=== PATIENT | female | born 1935 | race Caucasian/White ===

== ENCOUNTER 2017-06-04 06:16 | Inpatient (IN) ==
--- NOTE | 2017-06-04 06:42 | Emergency Department Note ---
START Narrative - START START: 82 year old female who has been experiencing increased shortness of breath and chest pain that radiates into her back between her shoulder blades. She states that she has a history of aortic stenosis and pulmonary hypertesion. Concern for aortic pathology. Will start workup and sign patinet out to day team (Ita) .
[2017-06-04 06:59] LABS: Basophils % 0.1 %; Eosinophils # 0.4 K/mcL (0.0-0.6); Eosinophils % 2.5 %; Immature Granulocytes % 1.6 % (0-4); Lymphocytes # 2.1 K/mcL (0.6-4.6); Lymphocytes % 15.1 %; Mean Corpuscular HGB Conc 26.8 g/dL (31.6-35.5); Mean Corpuscular Volume 89.2 fL (83.0-100.0); Monocytes # 1.2 K/mcL (0.0-1.3); Monocytes % 8.3 %; Nucleated Red Blood Cells 0.4 /100 WBC (0); Platelet Count 224 K/mcL (140-400); Red Blood Count 1.67 M/mcL (3.82-4.97); Red Cell Distribution Width 16.5 % (11.5-14.5); Segmented Neutrophils % 72.4 %
[2017-06-04 07:01] LABS: INR 1.1; Prothrombin Time 12.1 Seconds (9.4-12.1)
[2017-06-04 07:04] LABS: Activated Partial Thrombo Time 23.9 Seconds (26.0-36.0)
--- NOTE | 2017-06-04 07:07 | Emergency Department Note ---
Disposition Clinical Impression: Anemia Qualifiers: Anemia type: unspecified type Qualified Code(s): D64.9 - Anemia, unspecified Disposition: Admitted As Inpatient Condition: Good Time of Disposition: 10:18 General Adult HPI - General Chief complaint: ED Shortness of Breath/Dyspnea Stated complaint: ADRIANNA Time Seen by Provider: 06/04/17 06:22 Source: patient, EMS Limitations: no limitations Nursing Notes Reviewed: Yes Vital Signs Reviewed: Yes - History of Present Illness HPI Narrative: Several day history of generalized weakness. Also complaining of pain in her back between her shoulder blades. Does have associated dyspnea. Patient denies any recent GI bleeds upper or lower. She states she has never had a GI bleed before. States she had lab work done 1 week ago and was told it was normal. Pain Scale: 0 - Related Data Home Medications Medication Instructions Recorded Confirmed ALPRAZolam [Xanax 0.5 MG Tablet] 0.5 mg PO QID PRN 06/04/17 06/04/17 Amitriptyline HCl 100 mg PO HS 06/04/17 06/04/17 Calcium Carb, Citrate/Vit D3 1 tab PO DAILY 06/04/17 06/04/17 [Calcium + D3 ER Tablet] Enalapril Maleate [Vasotec] 10 mg PO DAILY 06/04/17 06/04/17 Furosemide [Lasix] 20 mg PO BID 06/04/17 06/04/17 HYDROcodone/Acet 10/325 mg [[place] 2 tab PO TID PRN 06/04/17 06/04/17 10-325 mg] Lecithin 518 mg PO BID 06/04/17 06/04/17 Metformin HCl [Glucophage] 1,000 mg PO BID 06/04/17 06/04/17 [place]-3/Dha/Epa/Fish Oil [Fish Oil 1 cap PO BID 06/04/17 06/04/17 1,000 mg Softgel] Ranitidine HCl [Acid Courtesy [place]] 150 mg PO BID 06/04/17 06/04/17 Sildenafil Citrate [Revatio] 20 mg PO TID 06/04/17 06/04/17 Tramadol HCl [Ultram] 50 mg PO Q8H PRN 06/04/17 06/04/17 Ubiquinol 100 mg PO DAILY 06/04/17 06/04/17 Vitamin B Complex Vit C No.4 150 mg PO BID 06/04/17 06/04/17 [Super B Complex] hydroCHLOROthiazide 25 mg PO DAILY 06/04/17 06/04/17 [Hydrochlorothiazide] Levothyroxine Sodium [Synthroid] 137 mcg PO DAILY@0630 06/05/17 06/05/17 Allergies Allergy/AdvReac Type Severity Reaction Status Date / Time iodine Allergy Anaphylaxis Verified 06/28/15 17:14 aspirin AdvReac Mild See Verified 06/28/15 17:14 Comments codeine AdvReac Palpitation Verified 06/28/15 17:14 s Cortisone AdvReac Hives Verified 06/28/15 17:14 Hydromorphone [From Dilaudid] AdvReac Itching Verified 06/28/15 17:14 prednisone AdvReac Palpitation Verified 06/28/15 17:14 s Sulfa (Sulfonamide AdvReac Nausea Verified 06/28/15 17:14 Antibiotics) All systems ED: reviewed and negative except as stated. Constitutional: Denies: fever, chills Cardiovascular: Denies: chest pain, palpitations, syncope Respiratory: Reports: dyspnea. Denies: cough Gastrointestinal: Denies: nausea, vomiting, diarrhea, hematemesis, melena, hematochezia Genitourinary: Denies: urgency Musculoskeletal: Reports: back pain (pain between her shoulder blades) Integumentary: Denies: rash Neurological: Denies: headache, weakness Endocrine: Reports: fatigue Past Medical History - Past Medical History Attestation: Yes The following information was validated with the patient. Source: patient Medical history: Reports: CHF, coronary artery disease, DVT, other Surgical history: Reports: angioplasty/stent, appendectomy, , cancer surgery, cholecystectomy, herniorrhaphy, hysterectomy, orthopedic, other Psychiatric history: Reports: no psych history - Social History Smoking Status: Never smoker Smokeless Tobacco Status: No Alcohol use: Reports: none Drug use: Reports: none Physical Exam - General Limitations: no limitations General appearance: alert, in no apparent distress - Head Head exam: atraumatic, normocephalic, normal inspection - Eye Eye exam: Present: normal appearance, PERRL, EOMI. Absent: scleral icterus - ENT ENT exam: normal exam, normal oropharynx, mucous membranes moist - Neck Neck exam: Present: normal inspection, full ROM, trachea midline. Absent: tenderness, lymphadenopathy - Chest Chest inspection: Present: normal inspection, symmetric chest wall rise - Respiratory Respiratory exam: Present: normal lung sounds bilaterally. Absent: respiratory distress - Cardiovascular Cardiovascular exam: Present: regular rate, normal rhythm, normal heart sounds - Abdominal Exam Abdominal exam: Present: soft, Non-Tender, normal bowel sounds. Absent: tenderness, distention, guarding, rebound, rigidity, organomegaly - Extremities Exam Extremities exam: Present: normal inspection, full ROM, normal capillary refill. Absent: tenderness, pedal edema - Back Exam Back exam: Present: normal inspection, full ROM. Absent: tenderness - Neurological Exam Neurological exam: Present: alert, oriented X3 - Psychiatric Psychiatric exam: Present: normal affect, normal mood, other (Appears tired) - Skin Skin exam: Present: warm, dry, intact, pallor Course Course Narrative: Signed out by slot shift manager. Female patient presenting to the emergency department complaining of generalized weakness. States that she started getting a pain in between her shoulder blades over the past couple days as well. Patient has pallor on exam in bed. She denies any history of GI bleeding. She states she does take an aspirin every day. She denies any recent GI bleedings or any history of GI bleeds. She does have a family history of colon cancer. She states she has had several colonoscopies previously with the last being several years ago. However she states she will not have another one of these. Patient is alert and oriented 3 at this time. She denies any chest pain. She does report some mild dyspnea. She states her main complaint is just that she is just weak. She does have some conjunctival pallor. Her abdomen is soft and nontender on exam. Bedside Hemoccult was negative. We have sent one office well. She denies any history of melena hematochezia or upper GI bleeding with hematemesis. We have typed and screened her and her hemoglobin is around 4. She states she had labs done a week ago and they were normal. I do not see the records of the lab draw last week. We attempted screened the patient and ordered 4 units of blood to transfuse now into to hold. Patient is adamant that she does not want any type of surgeries to correct this. She also states that she will not have another colonoscopy. After speaking with her she states she does have a DNR order and does not wish to be intubated at any time. Patient is alert and oriented and appears to be in her sound mind at this time. We will honor patient's wishes. We will admit patient to the hospital for her anemia. She is agreeable to this. She ended up getting 2 L of fluid while down here to maintain a blood pressure around 90 systolic. Her heart sounds are normal lung sounds are clear. Chest x-ray did show a nodule in her lung. We will CT patient's chest as well. She is denying any pain medication needed at this time. She states she takes chronic Percocet but does not need one currently. - Reevaluation(s) Reevaluation #1: Blood transfusion has begun. Bedside Hemoccult was negative as was the one we sent down. We will admit patient to the hospital for her anemia. She is agreeable to this. The resident has been made aware that the CT is pending. - Consultations Consultation #1: Dr. Carrillo and resident accepted patient in stable condition. Vital Signs Temperature 98.9 F 06/04/17 06:18 Pulse Rate 87 06/04/17 06:18 Respiratory Rate 18 06/04/17 06:18 Blood Pressure 74/49 06/04/17 06:18 O2 Sat by Pulse Oximetry 100 06/04/17 06:18 Temperature 98.4 F 06/05/17 16:00 Pulse Rate 73 06/05/17 16:00 Respiratory Rate 15 06/05/17 16:00 Blood Pressure 127/48 06/05/17 16:00 O2 Sat by Pulse Oximetry 98 06/05/17 16:00 Oxygen Delivery Oxygen Delivery Nasal Cannula Medical Decision Making - Medical Records Medical records reviewed: Yes I reviewed the patient's medical records. - Lab Data Lab results reviewed: Yes I reviewed the patient's lab results. Result diagrams: 06/05/17 15:04 06/05/17 04:31 Lab Results 06/04/17 06/04/17 06/04/17 Range/Units 06:45 06:45 06:45 WBC (4.3-11.1) K/mcL RBC (3.82-4.97) M/mcL Hgb (11.5-15.4) g/dL Hct (35.3-44.9) % MCV (83.0-100.0) fL MCH (28.0-33.3) pg MCHC (31.6-35.5) g/dL RDW (11.5-14.5) % Plt Count (140-400) K/mcL MPV (9.4-12.4) fL Immature Gran % (0-4) % Seg Neutrophils % % Lymphocytes % % Monocytes % % Eosinophils % % Basophils % % Neutrophils # (1.6-8.9) K/mcL Lymphocytes # (0.6-4.6) K/mcL Monocytes # (0.0-1.3) K/mcL Eosinophils # (0.0-0.6) K/mcL Basophils # (0.0-0.2) K/mcL Nucleated RBCs/100 WBC (0) /100 WBC Platelet Estimate (Normal) Polychromasia (Not Present) Hypochromasia (Not Present) Anisocytosis (Not Present) Microcytosis (Not Present) PT 12.1 (9.4-12.1) Seconds INR 1.1 APTT 23.9 L (26.0-36.0) Seconds Sodium 139 (136-145) mEq/L Potassium 5.2 H (3.5-4.5) mEq/L Chloride 103 (98-109) mEq/L Carbon Dioxide 16 L (19-29) mEq/L BUN 72 H (7-20) mg/dL Creatinine 1.41 H (0.57-1.11) mg/dL Est GFR ( Amer) 43 L (> 60) Est GFR (Non-Af Amer) 36 L (> 60) BUN/Creatinine Ratio 51 H (6-26) Glucose 333 H (70-99) mg/dL Calculated Osmolality 322 H (280-300) Calcium 8.0 L (8.6-10.8) mg/dL Total Bilirubin < 0.3 (0.2-1.2) mg/dL Direct Bilirubin < 0.1 (0.0-0.5) mg/dL Indirect Bilirubin 0.2 (0.0-1.2) mg/dL AST 13 (5-34) Units/L ALT 9 (0-55) Units/L Alkaline Phosphatase 56 (38-126) Units/L Troponin I (0-0.03) ng/mL B-Natriuretic Peptide 131 H (0-100) pg/mL Serum Total Protein 5.4 L (6.0-8.3) g/dL Albumin 2.3 L (3.5-5.0) g/dL Globulin 3.1 (2.4-3.5) g/dL Albumin/Globulin Ratio 0.7 L (1.1-2.2) Lipase 51 (8-78) Units/L Stool Occult Blood (Negative) Blood Type Antibody Screen Crossmatch 06/04/17 06/04/17 06/04/17 Range/Units 06:45 06:45 07:34 WBC 13.8 H (4.3-11.1) K/mcL RBC 1.67 L (3.82-4.97) M/mcL Hgb 4.0 L* (11.5-15.4) g/dL Hct 14.9 L* (35.3-44.9) % MCV 89.2 (83.0-100.0) fL MCH 24.0 L (28.0-33.3) pg MCHC 26.8 L (31.6-35.5) g/dL RDW 16.5 H (11.5-14.5) % Plt Count 224 (140-400) K/mcL MPV 11.0 (9.4-12.4) fL Immature Gran % 1.6 (0-4) % Seg Neutrophils % 72.4 % Lymphocytes % 15.1 % Monocytes % 8.3 % Eosinophils % 2.5 % Basophils % 0.1 % Neutrophils # 10.0 H (1.6-8.9) K/mcL Lymphocytes # 2.1 (0.6-4.6) K/mcL Monocytes # 1.2 (0.0-1.3) K/mcL Eosinophils # 0.4 (0.0-0.6) K/mcL Basophils # 0.0 (0.0-0.2) K/mcL Nucleated RBCs/100 WBC 0.4 H (0) /100 WBC Platelet Estimate Normal (Normal) Polychromasia 1+ A (Not Present) Hypochromasia Present A (Not Present) Anisocytosis 1+ A (Not Present) Microcytosis Present A (Not Present) PT (9.4-12.1) Seconds INR APTT (26.0-36.0) Seconds Sodium (136-145) mEq/L Potassium (3.5-4.5) mEq/L Chloride (98-109) mEq/L Carbon Dioxide (19-29) mEq/L BUN (7-20) mg/dL Creatinine (0.57-1.11) mg/dL Est GFR ( Amer) (> 60) Est GFR (Non-Af Amer) (> 60) BUN/Creatinine Ratio (6-26) Glucose (70-99) mg/dL Calculated Osmolality (280-300) Calcium (8.6-10.8) mg/dL Total Bilirubin (0.2-1.2) mg/dL Direct Bilirubin (0.0-0.5) mg/dL Indirect Bilirubin (0.0-1.2) mg/dL AST (5-34) Units/L ALT (0-55) Units/L Alkaline Phosphatase (38-126) Units/L Troponin I 0.01 (0-0.03) ng/mL B-Natriuretic Peptide (0-100) pg/mL Serum Total Protein (6.0-8.3) g/dL Albumin (3.5-5.0) g/dL Globulin (2.4-3.5) g/dL Albumin/Globulin Ratio (1.1-2.2) Lipase (8-78) Units/L Stool Occult Blood (Negative) Blood Type O POSITIVE Antibody Screen NEGATIVE Crossmatch See Detail 06/04/17 Range/Units 07:34 WBC (4.3-11.1) K/mcL RBC (3.82-4.97) M/mcL Hgb (11.5-15.4) g/dL Hct (35.3-44.9) % MCV (83.0-100.0) fL MCH (28.0-33.3) pg MCHC (31.6-35.5) g/dL RDW (11.5-14.5) % Plt Count (140-400) K/mcL MPV (9.4-12.4) fL Immature Gran % (0-4) % Seg Neutrophils % % Lymphocytes % % Monocytes % % Eosinophils % % Basophils % % Neutrophils # (1.6-8.9) K/mcL Lymphocytes # (0.6-4.6) K/mcL Monocytes # (0.0-1.3) K/mcL Eosinophils # (0.0-0.6) K/mcL Basophils # (0.0-0.2) K/mcL Nucleated RBCs/100 WBC (0) /100 WBC Platelet Estimate (Normal) Polychromasia (Not Present) Hypochromasia (Not Present) Anisocytosis (Not Present) Microcytosis (Not Present) PT (9.4-12.1) Seconds INR APTT (26.0-36.0) Seconds Sodium (136-145) mEq/L Potassium (3.5-4.5) mEq/L Chloride (98-109) mEq/L Carbon Dioxide (19-29) mEq/L BUN (7-20) mg/dL Creatinine (0.57-1.11) mg/dL Est GFR ( Amer) (> 60) Est GFR (Non-Af Amer) (> 60) BUN/Creatinine Ratio (6-26) Glucose (70-99) mg/dL Calculated Osmolality (280-300) Calcium (8.6-10.8) mg/dL Total Bilirubin (0.2-1.2) mg/dL Direct Bilirubin (0.0-0.5) mg/dL Indirect Bilirubin (0.0-1.2) mg/dL AST (5-34) Units/L ALT (0-55) Units/L Alkaline Phosphatase (38-126) Units/L Troponin I (0-0.03) ng/mL B-Natriuretic Peptide (0-100) pg/mL Serum Total Protein (6.0-8.3) g/dL Albumin (3.5-5.0) g/dL Globulin (2.4-3.5) g/dL Albumin/Globulin Ratio (1.1-2.2) Lipase (8-78) Units/L Stool Occult Blood Negative (Negative) Blood Type Antibody Screen Crossmatch - Radiology Data Radiology results reviewed: Yes I reviewed the patient's radiology results. Chest X-Ray 06/04/17 06:26 IMPRESSION: Left upper lobe nodule. Chest CT is recommended for further evaluation. D/ / Jack Lucio MD / Jack Lucio MD Interpreting Provider: Jack Lucio MD - EKG Data EKG #1 EKG attestation: Yes I reviewed and interpreted this EKG. EKG results narrative: Normal sinus rhythm at a rate 84. MT interval is 155. QRS duration is 79. QT is 352. QTC is 393. No signs of acute ischemia. There is some ST inversions in lead V1 as well as V6. These were not present on the previous EKG dated . Attestation Statement - Attestation Attestation: I, See Jean Baptiste, examined this patient and my medical decision-making was reviewed with the INTERNET AND [employer] BUSINESS PROJECT MANAGER/PA/Advanced Practice Nurse/Resident Physician. I agree with the documented findings, disposition and treatment plan as described except to the extent set forth below. 82-year-old female presents to the emergency department with significant shortness of breath and weakness. Patient is pale on exam and is hypotensive in the emergency department. Rectal exam did not show evidence of occult blood however there was not much stool in the rectal vault. Patient does have significantly elevated BUN/creatinine and she likely has gastrointestinal bleeding from an upper GI source. BP improved after IV fluids and starting blood. Patient denied chest pain, shortness of breath, nausea, vomiting. Patient comfortable with the plan for admission to hospital. She states she is DNR, DNI
[2017-06-04 07:09] LABS: Alanine Aminotransferase 9 Units/L (0-55); Albumin 2.3 g/dL (3.5-5.0); Albumin/Globulin Ratio 0.7 (1.1-2.2); Alkaline Phosphatase 56 Units/L (38-126); Aspartate Amino Transferase 13 Units/L (5-34); BUN/Creatinine Ratio 51 (6-26); Bilirubin,Indirect 0.2 mg/dL (0.0-1.2); Blood Urea Nitrogen 72 mg/dL (7-20); Carbon Dioxide 16 mEq/L (19-29); Chloride 103 mEq/L (98-109); Globulin 3.1 g/dL (2.4-3.5); Glucose 333 mg/dL (70-99); Lipase 51 Units/L (8-78); Osmolality,Calculated 322 (280-300); Potassium 5.2 mEq/L (3.5-4.5); Sodium 139 mEq/L (136-145); Total Protein 5.4 g/dL (6.0-8.3); eGFR For African Americans 43 (> 60); eGFR For Non-African Americans 36 (> 60)
[2017-06-04 07:10] LABS: Bilirubin,Direct < 0.1 mg/dL (0.0-0.5); Bilirubin,Total < 0.3 mg/dL (0.2-1.2)
[2017-06-04 07:13] LABS: Hematocrit 14.9 % (35.3-44.9)
[2017-06-04 07:16] LABS: Hypochromasia Present (Not Present); Platelet Estimate Normal (Normal)
[2017-06-04 07:17] LABS: Anisocytosis 1+ (Not Present); Microcytosis Present (Not Present); Polychromasia 1+ (Not Present)
[2017-06-04] MEDS ORDERED: 0.9 % Sodium Chloride 1,000 ML IVC ONE (07:24)
[2017-06-04] MEDS ORDERED: Pantoprazole 40 MG VIAL IVP ONE (07:29)
[2017-06-04] MEDS ORDERED: Pantoprazole 80 MG in 0.9 % Sodium Chloride 50 ML IVPB ONE (07:30)
[2017-06-04] MEDS ORDERED: 0.9 % Sodium Chloride 250 ML ONE ×3 (08:17→16:29)
[2017-06-04] MEDS ORDERED: Ondansetron 4 MG/2 ML VIAL IVP PRN (09:25)
[2017-06-04] MEDS ORDERED: Naloxone 0.4 MG/ML INJ IVP PRN (09:25)
[2017-06-04] MEDS ORDERED: *HR* Promethazine 25 MG/ML VIAL IVP PRN (09:25)
[2017-06-04] MEDS ORDERED: Acetaminophen 325 MG TABLET PO PRN (09:25)
--- NOTE | 2017-06-04 10:14 | Internal Med History&Physical ---
<Saad Reyes - Last Filed: 06/04/17 17:53> Date of Encounter: 06/04/17 Time of Encounter: 10:14 Assessment and Plan (1) Anemia Current visit: Yes Status: Acute patient came in with Hg of 4 Her last Hg in Sep 2016 was 9.9 Etiology unclear at this time, patient denies history of GI bleed. Plan: Appreciate GI recs patient is agreeing to EGD only at this time, but no colonoscopy ADA diet now, NPO after midnight. 4 units blood ordered and being transfused. check H/H Q6Hrs IV PPI BID Qualifiers: Anemia type: unspecified type Qualified Code(s): D64.9 - Anemia, unspecified (2) NOBLE (acute kidney injury) Current visit: Yes Status: Acute likely secondary to hypoperfusion and anemia. baseline Cr normal. Plan: IVF continue to monitor. hold home lasix at this time. avoid nephrotoxins. (3) Diabetes Current visit: Yes Status: Acute ADA diet low dose sliding scale insulin ACHS accuchecks. Qualifiers: Diabetes mellitus type: type 2 Diabetes mellitus complication status: with unspecified complications Diabetes mellitus wood heel flap rubber insulin use: unspecified wood heel flap rubber insulin use status Qualified Code(s): E11.8 - Type 2 diabetes mellitus with unspecified complications (4) HTN (hypertension) Current visit: Yes Status: Acute history of hypertension. hold antihypertensive meds at this time Qualifiers: Hypertension type: unspecified Qualified Code(s): I10 - Essential (primary ) hypertension (5) CHF (congestive heart failure) Current visit: Yes Status: Chronic hold home lasix dose at this time. Qualifiers: Congestive heart failure type: unspecified congestive heart failure type Congestive heart failure chronicity: unspecified congestive heart failure chronicity Qualified Code(s): I50.9 - Heart failure, unspecified (6) DVT prophylaxis Current visit: Yes Status: Acute EPCD Internal Medicine - H&P: HPI Chief complaint: fatigue Admitted From: Emergency Dept Plans for Post Hospital Care: Home History of present illness: Ms. Rivera is a 82 year old female with PMHx of DM2, HTN, HLD. Patient came to the ED today for chief complaint of feeling lightheaded, weak, and fatigue. SHe states this has beeng going on for a couple weeks now. she lives at home by herself. SHe also complained of diaphoresis and shortness of breath. she admits to nausea iwthout vomiting or diarrhea. she denies fever, chills, chest pain, hematuria, hematochezia. she states that she also had left leg numbness that started at 5am but has since resolved. she does have a history of multiple falls at home, and her last fall was in February when she hit her right shoulder and right hip, but did not report any ead injury. when patient arrived to ED, her Hg was found to be 4. SHe she states she does follow up with her PCP regularly and does get regularly scheduled blood work. she denies any recent injuries. she has not noticed any blood in her urine or stool, and is not on any anticoagulation. her last colonoscopy was 12 years ago and she is due for another one. however, she states that she is not willing to undergo EGD or colonoscopy at this time. she is aware that without these procedures, it will be very difficult to find the source of her bleeding, and she expresses understanding. patient is fully alert and oriented and appears fully capable of making her own decisions. she states she is willing to get blood transfusions, but is not willing to undergo surgery or other procedure. Past Med Surg Social Fam HX - Past Medical History Medical history: CHF, coronary artery disease, DVT, other Psychiatric history: no psych history - Past Surgical History Surgical History: angioplasty/stent, appendectomy, , cancer surgery, cholecystectomy, herniorrhaphy, hysterectomy, orthopedic, other - Social History Smoking Status: Never smoker Smokeless Tobacco Status: No Alcohol use: none Drug use: none Internal Medicine - H&P: Meds ALPRAZolam [Xanax 0.5 MG Tablet] 0.5 mg PO QID PRN 06/04/17 [History] Amitriptyline HCl 100 mg PO HS 06/04/17 [History] Calcium Carb, Citrate/Vit D3 [Calcium + D3 ER Tablet] 1 tab PO DAILY 06/04/17 [ History] Enalapril Maleate [Vasotec] 10 mg PO DAILY 06/04/17 [History] Furosemide [Lasix] 20 mg PO BID 06/04/17 [History] HYDROcodone/Acet 10/325 mg [[place] 10-325 mg] 2 tab PO TID PRN 06/04/17 [History] Lecithin 518 mg PO BID 06/04/17 [History] Metformin HCl [Glucophage] 1,000 mg PO BID 06/04/17 [History] [place]-3/Dha/Epa/Fish Oil [Fish Oil 1,000 mg Softgel] 1 cap PO BID 06/04/17 [ History] Ranitidine HCl [Acid [place]] 150 mg PO BID 06/04/17 [History] Sildenafil Citrate [Revatio] 20 mg PO TID 06/04/17 [History] Tramadol HCl [Ultram] 50 mg PO Q8H PRN 06/04/17 [History] Ubiquinol 100 mg PO DAILY 06/04/17 [History] Vitamin B Complex Vit C No.4 [Super B Complex] 150 mg PO BID 06/04/17 [History] hydroCHLOROthiazide [Hydrochlorothiazide] 25 mg PO DAILY 06/04/17 [History] 3 Allergy/AdvReac Type Severity Reaction Status Date / Time iodine Allergy Anaphylaxis Verified 06/28/15 17:14 aspirin AdvReac Mild See Verified 06/28/15 17:14 Comments codeine AdvReac Palpitation Verified 06/28/15 17:14 s Cortisone AdvReac Hives Verified 06/28/15 17:14 Hydromorphone [From Dilaudid] AdvReac Itching Verified 06/28/15 17:14 prednisone AdvReac Palpitation Verified 06/28/15 17:14 s Sulfa (Sulfonamide AdvReac Nausea Verified 06/28/15 17:14 Antibiotics) All Systems PM: A 10-system review of systems was performed and is negative for pertinent findings except as documented above in the HPI. - Constitutional Vitals: Temp Pulse Resp BP Pulse Ox 97.8 F 85 18 91/42 98 06/04/17 09:18 06/04/17 09:18 06/04/17 09:30 06/04/17 09:30 06/04/17 09:18 General appearance: Present: A&O X 3, pleasant, no acute distress, answers questions appropriately Exam: patient is extremely pale upon exam. - Head Head exam: Present: atraumatic, normocephalic - Neck Neck exam general surgery: Present: supple, trachea midline - Respiratory Additional comments: mild left lower lobe rales - Cardiovascular Cardiovascular exam: Present: +S1, +S2 Additional comments: +3/6 systolic murmur heard best at left upper sternal border. - GI/Abdominal GI/Abdominal exam: Present: distended, hypoactive bowel sounds, soft. Absent: tenderness - Extremities Exam Extremities exam: Absent: cyanotic Additional comments: brusing along medial aspect of left ankle. - Neurological Exam Neurological exam: Present: alert, oriented X3, no focal deficits - Psychiatric Psychiatric exam: Present: normal affect, normal mood Internal Med - H&P Results - Labs CBC & Chem 7: 06/04/17 15:55 06/04/17 06:45 <Contreras Carrillo P - Last Filed: 06/04/17 18:44> Date of Encounter: 06/04/17 Internal Medicine - H&P: HPI History of present illness: Ms. Rivera is a 82 year old female All Systems PM: A 10-system review of systems was performed and is negative for pertinent findings except as documented above in the HPI. - Constitutional Vitals: Temp Pulse Resp BP Pulse Ox 99.3 F 92 16 143/68 97 06/04/17 17:11 06/04/17 17:11 06/04/17 17:11 06/04/17 17:11 06/04/17 17:11 Internal Med - H&P Results - Labs CBC & Chem 7: 06/04/17 15:55 06/04/17 06:45 Labs: Short CBC 06/04/17 Range/Units 15:55 WBC 13.2 H (4.3-11.1) K/mcL Hgb 6.8 L D (11.5-15.4) g/dL Hct 22.0 L (35.3-44.9) % Plt Count 209 (140-400) K/mcL Neutrophils # 9.8 H (1.6-8.9) K/mcL - Attending Attestation I examined this patient and my medical decision-making was reviewed with the Resident Physician. I agree with the documented findings, disposition and treatment plan as described except to the extent set forth below.
[2017-06-04] MEDS ORDERED: 0.9 % Sodium Chloride 1,000 ML IVC SCH (10:15)
[2017-06-04] MEDS ORDERED: ALPRAZolam 0.5 MG TABLET PO PRN (11:36)
[2017-06-04] MEDS ORDERED: Dextrose Gel 15 GM PO PRN ×2 (11:38)
[2017-06-04] MEDS ORDERED: *HR* Dextrose 50 % in Water (Syg) 50 ML SYRINGE IVP PRN (11:38)
[2017-06-04] MEDS ORDERED: D5% in Water 1,000 ML IVC PRN (11:38)
[2017-06-04] MEDS ORDERED: VIT D3 PO SCH (11:45)
[2017-06-04] MEDS ORDERED: CALCIUM CARB CITRATE PO SCH (11:45)
--- NOTE | 2017-06-04 12:18 | Gastroenterology Consult Note ---
<ButcherMerlin corcoran Maria E - Last Filed: 06/04/17 12:16> Date of Encounter: 06/04/17 Time of Encounter: 11:55 - Assessment and plan (1) Anemia Current Visit: Yes Status: Acute Assessment and plan: On admission Hgb was 4, and on 12/26/2016 her Hgb 8.9. Her last colonoscopy was December [address] Bustamante with adenomatous polyp. Recommended EGD and colonoscopy tomorrow, but pt is only agreeable to EGD. Patient states she is unwilling to undergo colonoscopy. I explained that this will make it difficult to find source of her bleeding and she expresses understanding. Plan for EGD tomorrow to r/o esophagitis, gastritis, duodenitis, PUD, MW tear, or AVM. Keep NPO at midnight. Continue to monitor CBC and transfuse PRBC as needed. Qualifiers: Anemia type: unspecified type Qualified Code(s): D64.9 - Anemia, unspecified (2) NOBLE (acute kidney injury) Current Visit: Yes Status: Acute Assessment and plan: Management per primary team. (3) CHF (congestive heart failure) Current Visit: Yes Status: Chronic Assessment and plan: Management per primary team. Qualifiers: Congestive heart failure type: unspecified congestive heart failure type Congestive heart failure chronicity: unspecified congestive heart failure chronicity Qualified Code(s): I50.9 - Heart failure, unspecified - Time Spent With Patient Total time spent is greater than 50% in coordination of care (as documented) at patient's floor/unit and/or counseling patient: GI History of Present Illness - Data of Consult Patient: new to practice Consult date: 06/04/17 Requesting Physician: Adali Milton MD - Consult Narrative Reason for consult: Anemia History of present illness: Ms. Rivera is a 82 year old female with PMHx of CHF, CAD, DVT, DM2 who presented to the ED with chief complaint of feeling lightheaded, weak, and fatigue which has been going on for a couple of weeks. She also reports diaphoresis, shortness of breath, nausea. She denies fever, chills, chest pain, abdominal pain, vomiting, diarrhea, hematuria, melena, hematochezia. On admission Hgb was 4, and on 12/26/2016 her Hgb 8.9. Her last colonoscopy was December 2001. However she states she is not willing to undergo colonoscopy at this time. She is aware that this will make it difficult to find the source of her bleeding and she expresses understanding. Patient fully alert and oriented. She is fully capable of making her own decisions. Procedures: Colonoscopy 12/29/2001 Dr. Bustamante: Adenomatous polyp NSAIDs: None Anticoagulation: None Past Med Surg Social Fam HX - Past Medical History Medical history: CHF, coronary artery disease, DVT, other Psychiatric history: no psych history - Past Surgical History Surgical History: angioplasty/stent, appendectomy, , cancer surgery, cholecystectomy, herniorrhaphy, hysterectomy, orthopedic, other - Social History Smoking Status: Never smoker Smokeless Tobacco Status: No Alcohol use: none Drug use: none - Gastrointestinal Gastrointestinal: Present: as per HPI - Constitutional Constitutional: as per HPI - EENT Eyes: as per HPI Ears: Present: as per HPI Nose, mouth and throat: Present: as per HPI - Cardiovascular Cardiovascular ROS: Present: as per HPI - Respiratory Respiratory IM: Present: as per HPI - Genitourinary Genitourinary: Absent: change in color, Urinary frequency - Neurological ROS Neurological GI: Present: as per HPI - Hematologic/Lymphatic Hematologic/Lymphatic pediatric: Present: as per HPI - Musculoskeletal Musculoskeletal ROS GI: Present: as per HPI - Integumentary Integumentary GI: Present: as per HPI - Psychiatric ROS Psychiatric GI: Present: as per HPI - Endocrine Endocrine IM: Present: as per HPI - Constitutional Vitals: Temp Pulse Resp BP Pulse Ox 97.7 F 87 16 116/48 94 06/04/17 10:05 06/04/17 10:05 06/04/17 10:05 06/04/17 10:05 06/04/17 10:05 General appearance: Present: cooperative, A&O X 3, no acute distress, answers questions appropriately - Head Head exam: Present: atraumatic, normocephalic - Eye Eye exam: Present: normal appearance, sclera anicteric - ENT ENT exam: Present: mucous membranes dry - Neck Neck exam general surgery: Present: normal inspection, trachea midline - Respiratory Respiratory exam: Present: decreased breath sounds, CTAB. Absent: rales, rhonchi - Cardiovascular Cardiovascular exam: Present: RRR, +S1, +S2 Additional comments: +murmur - GI/Abdominal GI/Abdominal exam: Present: soft, no peritoneal signs. Absent: distended, firm , guarding, tenderness - Rectal Rectal exam: Present: deferred - Extremities Exam Extremities exam: Present: warm - Neurological Exam Neurological exam: Present: no focal deficits - Psychiatric Psychiatric exam: Present: normal affect, normal mood - Skin Skin exam: Present: dry, intact, normal color, warm Results - Labs CBC & Chem 7: 06/04/17 06:45 06/04/17 06:45 Labs: Last Result Calcium 8.0 mg/dL (8.6-10.8) L 06/04/17 06:45 Troponin I 0.01 ng/mL (0-0.03) 06/04/17 06:45 Stool Occult Blood Negative (Negative) 06/04/17 07:34 Entire Visit Hgb 4.0 g/dL (11.5-15.4) L* 06/04/17 06:45 Hct 14.9 % (35.3-44.9) L* 06/04/17 06:45 PT 12.1 Seconds (9.4-12.1) 06/04/17 06:45 Total Bilirubin < 0.3 mg/dL (0.2-1.2) 06/04/17 06:45 AST 13 Units/L (5-34) 06/04/17 06:45 ALT 9 Units/L (0-55) 06/04/17 06:45 Lipase 51 Units/L (8-78) 06/04/17 06:45 - ABG ABG results: PT/INR, D-dimer PT 12.1 Seconds (9.4-12.1) 06/04/17 06:45 Consult Discharge Plan - Plan Referrals: Josué Gerber DO [Primary Care Provider] - <Betty Griffith - Last Filed: 06/04/17 15:12> Date of Encounter: 06/04/17 Time of Encounter: 14:00 - Time Spent With Patient Total time spent is greater than 50% in coordination of care (as documented) at patient's floor/unit and/or counseling patient: GI History of Present Illness - Data of Consult Requesting Physician: Adali Milotn MD - Consult Narrative History of present illness: Ms. Rivera is a 82 year old female - Constitutional Vitals: Temp Pulse Resp BP Pulse Ox 97.7 F 97 20 119/50 99 06/04/17 12:20 06/04/17 12:20 06/04/17 12:20 06/04/17 12:20 06/04/17 12:20 Results - Labs CBC & Chem 7: 06/04/17 06:45 06/04/17 06:45 Labs: Last Result Calcium 8.0 mg/dL (8.6-10.8) L 06/04/17 06:45 Troponin I 0.01 ng/mL (0-0.03) 06/04/17 06:45 Stool Occult Blood Negative (Negative) 06/04/17 07:34 Entire Visit Hgb 4.0 g/dL (11.5-15.4) L* 06/04/17 06:45 Hct 14.9 % (35.3-44.9) L* 06/04/17 06:45 PT 12.1 Seconds (9.4-12.1) 06/04/17 06:45 Total Bilirubin < 0.3 mg/dL (0.2-1.2) 06/04/17 06:45 AST 13 Units/L (5-34) 06/04/17 06:45 ALT 9 Units/L (0-55) 06/04/17 06:45 Lipase 51 Units/L (8-78) 06/04/17 06:45 - ABG ABG results: PT/INR, D-dimer PT 12.1 Seconds (9.4-12.1) 06/04/17 06:45 - Attending Attestation I examined this patient and my medical decision-making was reviewed with the Resident Physician. I agree with the documented findings, disposition and treatment plan as described except to the extent set forth below. Patient with anemia but has bad COPD. The patient was told by her lung doctor that she cannot have any surgical procedure. Per patient she does have a strong family history of colon cancer but she does not want to have colonoscopy because even if she has a cancer there she cannot have surgery. She is agreeable for EGD.
[2017-06-04] MEDS ORDERED: Furosemide 20 MG/2 ML VIAL IVP ONE ×2 (14:04→17:51)
[2017-06-04 16:11] LABS: Basophils % 0.3 %; Eosinophils # 0.1 K/mcL (0.0-0.6); Eosinophils % 0.8 %; Hemoglobin 6.8 g/dL (11.5-15.4); Lymphocytes # 1.7 K/mcL (0.6-4.6); Lymphocytes % 12.9 %; Mean Corpuscular HGB Conc 30.9 g/dL (31.6-35.5); Mean Corpuscular Hemoglobin 27.1 pg (28.0-33.3); Mean Corpuscular Volume 87.6 fL (83.0-100.0); Mean Platelet Volume 11.1 fL (9.4-12.4); Monocytes # 1.3 K/mcL (0.0-1.3); Monocytes % 9.6 %; Neutrophils # 9.8 K/mcL (1.6-8.9); Nucleated Red Blood Cells 0.4 /100 WBC (0); Platelet Count 209 K/mcL (140-400); Red Blood Count 2.51 M/mcL (3.82-4.97); Segmented Neutrophils % 74.4 %
--- NOTE | 2017-06-04 17:48 | Electrocardiograph Report ---
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
[2017-06-04] MEDS: *HR* HYDROcodone/Acet 10/325 mg TABLET PO PRN (17:51)
[2017-06-04] MEDS: Insulin LISPRO 300 UNITS/3 ML VIAL SQ SCH ×2 (18:24→19:44)
[2017-06-04] MEDS: Pantoprazole 40 MG VIAL IVP SCH (19:59)
[2017-06-04 20:53] LABS: Basophils % 0.3 %; Eosinophils # 0.3 K/mcL (0.0-0.6); Eosinophils % 1.8 %; Immature Granulocytes % 2.1 % (0-4); Lymphocytes # 2.3 K/mcL (0.6-4.6); Lymphocytes % 16.6 %; Mean Corpuscular HGB Conc 32.5 g/dL (31.6-35.5); Mean Corpuscular Hemoglobin 28.3 pg (28.0-33.3); Mean Platelet Volume 11.3 fL (9.4-12.4); Monocytes # 1.6 K/mcL (0.0-1.3); Monocytes % 11.3 %; Neutrophils # 9.5 K/mcL (1.6-8.9); Nucleated Red Blood Cells 0.4 /100 WBC (0); Platelet Count 179 K/mcL (140-400); Red Blood Count 2.76 M/mcL (3.82-4.97); Red Cell Distribution Width 15.5 % (11.5-14.5); Segmented Neutrophils % 67.9 %
[2017-06-04 20:54] LABS: Hemoglobin 7.8 g/dL (11.5-15.4)
[2017-06-04 21:58] LABS: Basophils # 0.1 K/mcL (0.0-0.2); Basophils % 0.4 %; Eosinophils # 0.3 K/mcL (0.0-0.6); Eosinophils % 2.3 %; Hematocrit 24.6 % (35.3-44.9); Immature Granulocytes % 1.6 % (0-4); Lymphocytes # 2.6 K/mcL (0.6-4.6); Lymphocytes % 18.4 %; Mean Corpuscular HGB Conc 32.5 g/dL (31.6-35.5); Mean Corpuscular Hemoglobin 28.1 pg (28.0-33.3); Mean Corpuscular Volume 86.3 fL (83.0-100.0); Mean Platelet Volume 10.9 fL (9.4-12.4); Monocytes # 1.6 K/mcL (0.0-1.3); Monocytes % 11.5 %; Neutrophils # 9.3 K/mcL (1.6-8.9); Nucleated Red Blood Cells 0.4 /100 WBC (0); Platelet Count 186 K/mcL (140-400); Red Blood Count 2.85 M/mcL (3.82-4.97); Red Cell Distribution Width 15.5 % (11.5-14.5); Segmented Neutrophils % 65.8 %
[2017-06-05] MEDS: Insulin LISPRO 300 UNITS/3 ML VIAL SQ SCH ×5 (00:18→21:44)
[2017-06-05] MEDS: *HR* HYDROcodone/Acet 10/325 mg TABLET PO PRN ×3 (00:37→23:02)
[2017-06-05 05:13] LABS: Basophils # 0.1 K/mcL (0.0-0.2); Basophils % 0.5 %; Eosinophils # 0.7 K/mcL (0.0-0.6); Eosinophils % 4.5 %; Hematocrit 26.6 % (35.3-44.9); Hemoglobin 8.7 g/dL (11.5-15.4); Immature Granulocytes % 1.6 % (0-4); Lymphocytes # 3.4 K/mcL (0.6-4.6); Lymphocytes % 23.3 %; Mean Corpuscular HGB Conc 32.7 g/dL (31.6-35.5); Mean Corpuscular Hemoglobin 28.6 pg (28.0-33.3); Mean Corpuscular Volume 87.5 fL (83.0-100.0); Monocytes # 1.5 K/mcL (0.0-1.3); Monocytes % 9.9 %; Neutrophils # 8.8 K/mcL (1.6-8.9); Nucleated Red Blood Cells 0.3 /100 WBC (0); Platelet Count 197 K/mcL (140-400); Red Blood Count 3.04 M/mcL (3.82-4.97); Red Cell Distribution Width 15.9 % (11.5-14.5); Segmented Neutrophils % 60.2 %
[2017-06-05 05:23] LABS: BUN/Creatinine Ratio 65 (6-26); Calcium 8.6 mg/dL (8.6-10.8); Carbon Dioxide 24 mEq/L (19-29); Chloride 109 mEq/L (98-109); Glucose 108 mg/dL (70-99); Osmolality,Calculated 306 (280-300); Sodium 141 mEq/L (136-145); eGFR For African Americans > 60 (> 60); eGFR For Non-African Americans > 60 (> 60)
[2017-06-05 05:24] LABS: Blood Urea Nitrogen 50 mg/dL (7-20); Potassium 3.7 mEq/L (3.5-4.5)
[2017-06-05] MEDS: Pantoprazole 40 MG VIAL IVP SCH ×2 (05:50→17:47)
[2017-06-05] MEDS ORDERED: *HR* FentaNYL (PF) 100 MCG/2 ML VIAL ONE (08:21)
[2017-06-05] MEDS ORDERED: *HR* Midazolam HCl 5 MG/5 ML VIAL IVP ONE (08:21)
[2017-06-05] MEDS ORDERED: Tetracaine/Benzocaine/Butamben 200MG/SPRAY (100SPY/BOT) MM ONE (08:53)
[2017-06-05] MEDS ORDERED: *HR* FentaNYL (PF) 100 MCG/2 ML VIAL IVP PRN (08:53)
[2017-06-05] MEDS ORDERED: Simethicone 40 MG/0.6 ML MLS IR ONE (08:53)
--- NOTE | 2017-06-05 08:57 | Pre-Sedation Evaluation ---
Pre-sedation evaluation - Pre-sedation checklist Date of procedure: 06/05/17 Procedure: EGD Recent Vitals: Last Vital Signs Temp 99.2 F 06/05/17 08:45 Pulse 86 06/05/17 08:45 Resp 18 06/05/17 08:45 BP 171/77 06/05/17 08:45 Pulse Ox 95 06/05/17 08:45 H&P (including ROS) documented in medical record: Yes Previous reaction to sedatives/anesthetics: No Dietary Status: NPO after Midnight Airway Assessment: Patient can open mouth completely, TMJ function normal, Micrognathia (under-bite, receding chin) absent, Neck with adequate range of motion Dentition: No loose teeth or bridges, full dentition Possible difficult airway: No ASA Classification *see protocol: CLASS III-Severe systemic disease Plan of Care: Pt appropriate candidate for procedure/moderate/conscious sedation , Risks/benefits of procedure/sedation discussed w/ patient/family, If not NPO; Risk of intake outweiged by necessity to perform procedure
[2017-06-05] MEDS: *HR* Midazolam HCl 5 MG/5 ML VIAL IVP PRN ×2 (09:02→09:05)
--- NOTE | 2017-06-05 10:18 | Internal Med Progress Note ---
<TejaTank palacios - Last Filed: 06/05/17 14:41> Date of Encounter: 06/05/17 Time of Encounter: 09:00 - Assessment and plan (1) Anemia Current Visit: Yes Status: Acute Assessment and plan: acute on chronic. Unclear etiology possible due to GI loses likely some element of iron deficiency as well. Last Hgb in our records form December 2016 was 8.9. 9.9 in September 2016, 10.5- 11.3 2013-March 2016. EGD today showed no signs of bleeding Patient refusing Colonoscopy. She has been counseled on the benefit by multiple providers and understands and accepts the risks. She monitors here stools regularly and has not noticed any dark tarry stools, or BRB per rectum. Hemmocult is negative. Patient does have multiple bruises on her arms consider looking for non GI tract bleeding with U/S or CT if hgb drops again. Type and Screen active 1 unit of blood on reserve. Qualifiers: Anemia type: unspecified type Qualified Code(s): D64.9 - Anemia, unspecified (2) Diabetes Current Visit: Yes Status: Acute Assessment and plan: Chronic, Stable continue SSI Continue diabetic diet and accuchecks Qualifiers: Diabetes mellitus type: type 2 Diabetes mellitus complication status: with unspecified complications Diabetes mellitus director long term care insulin use: unspecified director long term care insulin use status Qualified Code(s): E11.8 - Type 2 diabetes mellitus with unspecified complications (3) HTN (hypertension) Current Visit: Yes Status: Acute Assessment and plan: [place] stable Restart lisinopril Qualifiers: Hypertension type: unspecified Qualified Code(s): I10 - Essential (primary ) hypertension (4) NOBLE (acute kidney injury) Current Visit: Yes Status: Acute Assessment and plan: Resolved. Likely 2/2 blood loss/hypotension Patient back to baseline creatinine. (5) CHF (congestive heart failure) Current Visit: Yes Status: Chronic Assessment and plan: Chronic, stable Consider restarting lasix if BP remains high. Were holding for NOBLE which has now resolved. Qualifiers: Congestive heart failure type: diastolic Congestive heart failure chronicity: chronic Qualified Code(s): I50.32 - Chronic diastolic (congestive ) heart failure - Subjective Interval history: Patient has just returned from EGD. EGD negative for any signs of bleeding. Patient denies blood in stool or urine. Patient reprots feeling much better s/p 3 units of blood. Hgb 8.7 this morning up form 4 on admission. Patient still refusing colonoscopy to further evaluate her bleeding. She denies Chest pain, SOB, Lightheadedness, fever chill, Nausea, Vomiting, diarrhea. - Constitutional Vitals: Temp Pulse Resp BP Pulse Ox 99.2 F 85 16 161/71 94 06/05/17 08:45 06/05/17 09:05 06/05/17 09:05 06/05/17 09:05 06/05/17 09:05 General appearance: Present: A&O X 3, pleasant, no acute distress, answers questions appropriately - Head Head exam: Present: atraumatic, normocephalic - Eye Eye exam: Present: PERRL, sclera anicteric - ENT ENT exam: Present: mucous membranes moist - Neck Neck exam general surgery: Present: supple, trachea midline - Respiratory Respiratory exam: Present: decreased breath sounds. Absent: rales, rhonchi, wheezes Additional comments: faint crackles throughout - Cardiovascular Cardiovascular exam: Present: RRR, +S1, +S2, systolic murmur (3/6 best heard at Left sternal border). Absent: diastolic murmur, gallop, rubs - GI/Abdominal GI/Abdominal exam: Present: normal bowel sounds, soft, no peritoneal signs. Absent: tenderness - Extremities Exam Extremities exam: Absent: cyanotic, pedal edema Additional comments: Bruising on extremities which she states are not new.She has had an issue with bruising for years. - Neurological Exam Neurological exam: Present: alert, oriented X3. Absent: facial droop, speech deficit - Psychiatric Psychiatric exam: Present: normal affect, normal mood Internal Medicine: Result - Labs CBC & Chem 7: 06/05/17 04:31 06/05/17 04:31 Labs: Short CBC 06/04/17 06/04/17 06/04/17 Range/Units 15:55 20:40 21:40 WBC 13.2 H 14.1 H 14.2 H (4.3-11.1) K/mcL Hgb 6.8 L D 7.8 L 8.0 L (11.5-15.4) g/dL Hct 22.0 L 24.0 L 24.6 L (35.3-44.9) % Plt Count 209 179 186 (140-400) K/mcL Neutrophils # 9.8 H 9.5 H 9.3 H (1.6-8.9) K/mcL 06/05/17 Range/Units 04:31 WBC 14.6 H (4.3-11.1) K/mcL Hgb 8.7 L (11.5-15.4) g/dL Hct 26.6 L (35.3-44.9) % Plt Count 197 (140-400) K/mcL Neutrophils # 8.8 (1.6-8.9) K/mcL BMP 06/05/17 04:31 Sodium 141 Potassium 3.7 D Chloride 109 Carbon Dioxide 24 BUN 50 H D Creatinine 0.77 Glucose 108 H Calcium 8.6 - ABG Interpretation ABG results: PT/INR, D-dimer PT 12.1 Seconds (9.4-12.1) 06/04/17 06:45 - VTE Documentation of Mechanical Device: Intermittent pneumatic compression device Consult Discharge Plan - Plan Referrals: Josué Gerber DO [Primary Care Provider] - (Web requested 06/04/17) <Contreras Carrillo - Last Filed: 06/05/17 18:19> Date of Encounter: 06/05/17 - Constitutional Vitals: Temp Pulse Resp BP Pulse Ox 98.4 F 73 15 127/48 98 06/05/17 16:00 06/05/17 16:00 06/05/17 16:00 06/05/17 16:00 06/05/17 16:00 Internal Medicine: Result - Labs CBC & Chem 7: 06/05/17 15:04 06/05/17 04:31 Labs: Short CBC 06/04/17 06/04/17 06/05/17 Range/Units 20:40 21:40 04:31 WBC 14.1 H 14.2 H 14.6 H (4.3-11.1) K/mcL Hgb 7.8 L 8.0 L 8.7 L (11.5-15.4) g/dL Hct 24.0 L 24.6 L 26.6 L (35.3-44.9) % Plt Count 179 186 197 (140-400) K/mcL Neutrophils # 9.5 H 9.3 H 8.8 (1.6-8.9) K/mcL 06/05/17 Range/Units 15:04 WBC (4.3-11.1) K/mcL Hgb 8.7 L (11.5-15.4) g/dL Hct 27.9 L (35.3-44.9) % Plt Count (140-400) K/mcL Neutrophils # (1.6-8.9) K/mcL BMP 06/05/17 04:31 Sodium 141 Potassium 3.7 D Chloride 109 Carbon Dioxide 24 BUN 50 H D Creatinine 0.77 Glucose 108 H Calcium 8.6 Urine 06/05/17 Range/Units 12:55 Urine Color Yellow (Yellow) Urine Clarity Clear (Clear) Urine pH 6.0 (5.0-8.0) pH Units Ur Specific [place] 1.015 (1.010-1.025) Urine Protein Negative (Neg-Trace) mg/dL Urine Glucose (UA) Normal (Normal) mg/dL - ABG Interpretation ABG results: PT/INR, D-dimer PT 12.1 Seconds (9.4-12.1) 06/04/17 06:45 - Attending Attestation I examined this patient and my medical decision-making was reviewed with the Resident Physician. I agree with the documented findings, disposition and treatment plan as described except to the extent set forth below.
[2017-06-05 13:11] LABS: Bilirubin,Urine Negative (Negative); Blood,Urine Negative (Negative); Clarity,Urine Clear (Clear); Color,Urine Yellow (Yellow); Glucose,Urine (UA) Normal (Normal); Ketones,Urine Trace mg/dL (Negative); Leukocyte Esterase,Urine Negative (Negative); Nitrite,Urine Negative (Negative); Protein,Urine Negative (Neg-Trace); Specific Gravity,Urine 1.015 (1.010-1.025); Urobilinogen,Urine Normal (Normal)
[2017-06-05 15:42] LABS: Hematocrit 27.9 % (35.3-44.9); Hemoglobin 8.7 g/dL (11.5-15.4)
[2017-06-05] MEDS: Lisinopril 20 MG TABLET PO SCH (17:47)
[2017-06-06 05:13] LABS: Hematocrit 26.6 % (35.3-44.9); Mean Corpuscular HGB Conc 30.1 g/dL (31.6-35.5); Mean Corpuscular Hemoglobin 27.2 pg (28.0-33.3); Mean Corpuscular Volume 90.5 fL (83.0-100.0); Mean Platelet Volume 10.9 fL (9.4-12.4); Platelet Count 225 K/mcL (140-400); Red Blood Count 2.94 M/mcL (3.82-4.97); Red Cell Distribution Width 16.7 % (11.5-14.5)
[2017-06-06 05:28] LABS: BUN/Creatinine Ratio 30 (6-26); Calcium 8.6 mg/dL (8.6-10.8); Carbon Dioxide 26 mEq/L (19-29); Chloride 108 mEq/L (98-109); Glucose 106 mg/dL (70-99); Osmolality,Calculated 297 (280-300); Potassium 3.4 mEq/L (3.5-4.5); Sodium 142 mEq/L (136-145); eGFR For African Americans > 60 (> 60); eGFR For Non-African Americans > 60 (> 60)
[2017-06-06 05:29] LABS: Blood Urea Nitrogen 21 mg/dL (7-20)
[2017-06-06] MEDS: *HR* HYDROcodone/Acet 10/325 mg TABLET PO PRN ×2 (06:26→11:11)
[2017-06-06] MEDS: Pantoprazole 40 MG VIAL IVP SCH (06:27)
--- NOTE | 2017-06-06 07:45 | Discharge Summary ---
<Tank Brewer - Last Filed: 06/06/17 09:53> Date of Encounter: 06/06/17 Time of Encounter: 09:00 - Discharge Diagnosis (1) Anemia Priority: Primary Status: Acute Qualifiers: Anemia type: unspecified type Qualified Code(s): D64.9 - Anemia, unspecified (2) Diabetes Priority: Secondary Status: Acute Qualifiers: Diabetes mellitus type: type 2 Diabetes mellitus complication status: with unspecified complications Diabetes mellitus intermediate card tender insulin use: unspecified intermediate card tender insulin use status Qualified Code(s): E11.8 - Type 2 diabetes mellitus with unspecified complications (3) HTN (hypertension) Priority: Secondary Status: Acute Qualifiers: Hypertension type: unspecified Qualified Code(s): I10 - Essential (primary ) hypertension (4) NOBLE (acute kidney injury) Priority: Secondary Status: Acute (5) CHF (congestive heart failure) Priority: Secondary Status: Chronic Qualifiers: Congestive heart failure type: diastolic Congestive heart failure chronicity: chronic Qualified Code(s): I50.32 - Chronic diastolic (congestive ) heart failure (6) Pulmonary hypertension Priority: Secondary Status: Chronic - Discharge Medications Home Medications: ALPRAZolam [Xanax 0.5 MG Tablet] 0.5 mg PO QID PRN 06/04/17 [History] Amitriptyline HCl 100 mg PO HS 06/04/17 [History] Calcium Carb, Citrate/Vit D3 [Calcium + D3 ER Tablet] 1 tab PO DAILY 06/04/17 [ History] Enalapril Maleate [Vasotec] 10 mg PO DAILY 06/04/17 [History] Furosemide [Lasix] 20 mg PO BID 06/04/17 [History] HYDROcodone/Acet 10/325 mg [[place] 10-325 mg] 2 tab PO TID PRN 06/04/17 [History] Lecithin 518 mg PO BID 06/04/17 [History] Metformin HCl [Glucophage] 1,000 mg PO BID 06/04/17 [History] [place]-3/Dha/Epa/Fish Oil [Fish Oil 1,000 mg Softgel] 1 cap PO BID 06/04/17 [ History] Ranitidine HCl [Acid Merchandise Handler] 150 mg PO BID 06/04/17 [History] Sildenafil Citrate [Revatio] 20 mg PO TID 06/04/17 [History] Tramadol HCl [Ultram] 50 mg PO Q8H PRN 06/04/17 [History] Ubiquinol 100 mg PO DAILY 06/04/17 [History] Vitamin B Complex Vit C No.4 [Super B Complex] 150 mg PO BID 06/04/17 [History] hydroCHLOROthiazide [Hydrochlorothiazide] 25 mg PO DAILY 06/04/17 [History] Levothyroxine Sodium [Synthroid] 137 mcg PO DAILY@0630 06/05/17 [History] Allergies/Adverse Reactions: 3 Allergy/AdvReac Type Severity Reaction Status Date / Time iodine Allergy Anaphylaxis Verified 06/28/15 17:14 aspirin AdvReac Mild See Verified 06/28/15 17:14 Comments codeine AdvReac Palpitation Verified 06/28/15 17:14 s Cortisone AdvReac Hives Verified 06/28/15 17:14 Hydromorphone [From Dilaudid] AdvReac Itching Verified 06/28/15 17:14 prednisone AdvReac Palpitation Verified 06/28/15 17:14 s Sulfa (Sulfonamide AdvReac Nausea Verified 06/28/15 17:14 Antibiotics) Procedures/tests Complete & Pending: CXR: "FINDINGS: There is a left upper lobe nodule which is not seen on the prior exam. This measures approximately 1.7 cm in diameter and projects between the anterior margins of the 1st and 2nd ribs. Scarring is identified in the mid left lung and left base. The heart size is at the upper limits of normal. There is no definite pleural effusion or pneumothorax. XR/XR chest 1V portable IMPRESSION: Left upper lobe nodule. Chest CT is recommended for further evaluation" CT Chest: "FINDINGS: Mediastinum: Heart is normal in size. No pericardial effusion. Atherosclerotic changes to the thoracic aorta. No evidence for aneurysm. Coronary artery calcifications. Calcifications of aortic and mitral valves. No definite mediastinal or hilar lymphadenopathy on this noncontrast study. Lungs/pleura: There is a suprahilar nodule noted to the left upper lobe intimately associated with the vascular and bronchial structures measuring 2.6 x 2.6 x 1.8 cm. There is a 2nd spiculated nodule noted to the left upper lobe towards the apex posteriorly abutting the pleura measuring 1.6 x 1.6 x 1.4 cm. There is also a spiculated nodule noted to the right upper lobe posterolaterally measuring 1.1 x 1.2 x 1.2 cm. There is also a somewhat spiculated nodule noted to the right lower lobe measuring 1.3 x 1.4 x 1.4 cm. There are some linear areas of likely scarring noted to the lungs bilaterally. No focal consolidations, pleural effusions or pneumothoraces. No endobronchial lesions. Upper Abdomen: Limited images to the upper abdomen demonstrate no acute or suspicious abnormalities. No adrenal mass lesions are seen. Soft Tissues/Bones: No acute or suspicious bony abnormalities are seen. There are bilateral glenohumeral joint effusions, right larger than left. CT/CT chest wo con IMPRESSION: There are multiple nodules identified to the lungs bilaterally which are highly concerning for neoplastic process with differential considerations to include metastatic disease as well as primary bronchogenic carcinoma. Largest focus is noted to the left upper lobe in the suprahilar region measuring maximally 2.6 cm. There is an additional focus to the left upper lobe measuring maximally 1.6 cm as well as a focus to the right upper lobe measuring maximally 1.2 cm and a focus to the right lower lobe measuring maximally 1.4 cm. Further evaluation recommended with PET-CT versus tissue sampling. No definite lymphadenopathy identified on this noncontrast exam. No bony metastatic disease is seen. No adrenal lesions are identified. Atherosclerosis to include coronary artery disease. There are also aortic and mitral valve calcifications. Bilateral glenohumeral joint effusions, right larger than left." " EGD: "non obstructing schatzki ring, Small hiatal hernia, diffse gastritis, normal examined dudenum to the seond part, severe anemia" - Notes to Outpatient Provider CT Chest showed: "There are multiple nodules identified to the lungs bilaterally which are highly concerning for neoplastic process with differential considerations to include metastatic disease as well as primary bronchogenic carcinoma. Largest focus is noted to the left upper lobe in the suprahilar region measuring maximally 2.6 cm. There is an additional focus to the left upper lobe measuring maximally 1.6 cm as well as a focus to the right upper lobe measuring maximally 1.2 cm and a focus to the right lower lobe measuring maximally 1.4 cm. Further evaluation recommended with PET-CT versus tissue sampling." We have referred patient to Oncology and told her to follow up with her commercial litigation associate at [facility] concerning these findings. Patient refusing any further investigation at this time concerning this finding. Patient refused colonoscopy to further evaluate the cause of her bleeding. Patient appears to be chronically low hgb. Consider further investigation into cause as outpatient such as iron studies. Date of admission: 06/04/17 08:59 Primary care physician: Josué Gerber, Consults: 06/04/17 11:31 Consult to Gastroenterology [CONS] Routine Consulting Provider: [facility] [place] Reason for Consult: Hg of 4, possible GI bleed. Call Completed: Yes 06/04/17 14:01 Consult to Saddle Maker [CONS] Routine Reason for SW Consult: Living will and POA changed Discharging clinician: Tank Brewer Anticipated date of discharge: 06/06/17 - Patient Status Disposition: Home Health Service Condition: Good Functional capacity at discharge: uses cane/walker Overall status at discharge: patient is progressing back to baseline - Discharge Instructions Follow Up With: Josué Gerber DO [Primary Care Provider] - (Please call and schedule a hospital follow up with your PCP on Thursday for 5-7 days out. Thank you!!) Additional Instructions: Please follow up with your primary care provider within 1 week of discharge. Please follow up with your pulmonlogist as soon as possible. Please follow up with Oncology as soon as possible. Please resume all your home medications as prescribed. Please attempt to eat more foods rich in iron such as spinach, broccoli, tomatos , beans, prunes, apricots, peas, oranges, grapefruits, strawberries, dark chocolate, figs, and seafood. Please return to the hospital if you experience any new or worsening symptoms. - Diet and Activity Activity: resume usual activities as tolerated Diet: diabetic diet Interval History: Patient feels much better post transfusion and is eager to go home today. Hospital course: Ms. Rivera is a 82 year old female PMHx of DM2, HTN, HLD, dCHF, coronary artery disease, DVT, pulmonary HTN who presented to the hspital with worsening SOB, fatigue. Patient was found to have a hgb of 4 on admission. She was transfused 3 units of PRBC. Her Hgb increased to 8.7 post transfusion. She has remained stable to 8.0 this morning. Unclear etiology possible due to GI loses likely some element of iron deficiency as well. Anemia of chronic disease also a possibility with multiple lung nodules found on CT. Last Hgb in our records form December 2016 was 8.9. Hgb was 9.9 in September 2016, 10.5-11.3 2013-March 2016. EGD today showed no signs of bleeding. Patient refusing Colonoscopy. She has been counseled on the benefit by multiple providers and understands and accepts the risks. She monitors here stools regularly and has not noticed any dark tarry stools, or BRB per rectum. Hemmocult is negative here. patient also found to have multiple lung nodules found on CT. Patient refusing further investigation at this point. She has been referred to Oncology and to return to her pulmonology group at [facility]. Patient feels much better post transfusion and is eager to go home today. She was discharged home in stable condition. - Time Spent with Patient Total time spent providing and/or coordinating discharge services: 40 minutes - Constitutional Vitals: Temp Pulse Resp BP Pulse Ox 97.7 F 60 17 105/57 91 06/06/17 07:28 06/06/17 07:28 06/06/17 07:28 06/06/17 07:28 06/06/17 07:28 General appearance: Present: A&O X 3, pleasant, no acute distress, answers questions appropriately - Head Head exam: Present: atraumatic, normocephalic - Eye Eye exam: Present: PERRL, sclera anicteric - Neck Neck exam general surgery: Present: supple, trachea midline - Respiratory Respiratory exam: Present: decreased breath sounds, CTAB. Absent: rales, rhonchi, wheezes - Cardiovascular Cardiovascular exam: Present: RRR, +S1, +S2, systolic murmur (3/6, best heard at L sternal border. ) - GI/Abdominal GI/Abdominal exam: Present: normal bowel sounds, soft. Absent: tenderness - Extremities Exam Extremities exam: Absent: calf tenderness, cyanotic, pedal edema Additional comments: diffuse old bruising upper and lower extremities - Neurological Exam Neurological exam: Present: alert, oriented X3. Absent: facial droop, speech deficit - Psychiatric Psychiatric exam: Present: normal affect, normal mood - Skin Skin exam: Present: dry, intact, warm - VTE Documentation of Mechanical Device: Intermittent pneumatic compression device <Contreras Carrillo P - Last Filed: 06/06/17 14:00> Date of Encounter: 06/06/17 Date of admission: 06/04/17 08:59 Primary care physician: Josué Gerber, Consults: 06/04/17 11:31 Consult to Gastroenterology [CONS] Routine Consulting Provider: [facility] [place] Reason for Consult: Hg of 4, possible GI bleed. Call Completed: Yes 06/04/17 14:01 Consult to Saddle Maker [CONS] Routine Reason for SW Consult: Living will and POA changed Hospital course: Ms. Rivera is a 82 year old female - Time Spent with Patient Total time spent providing and/or coordinating discharge services: - Constitutional Vitals: Temp Pulse Resp BP Pulse Ox 97.8 F 68 16 119/67 99 06/06/17 10:41 06/06/17 10:41 06/06/17 10:41 06/06/17 10:41 06/06/17 10:41 - Attending Attestation I examined this patient and my medical decision-making was reviewed with the Resident Physician. I agree with the documented findings, disposition and treatment plan as described except to the extent set forth below. lung nodule and malignancy follow up at [facility]
[2017-06-06] MEDS ORDERED: Cholecalciferol (D-3) 1,000 UNIT TABLET PO SCH (09:00)
[2017-06-06] MEDS ORDERED: Lisinopril 20 MG TABLET PO SCH (09:00)
--- NOTE | 2017-06-06 09:48 | Physician Discharge Referral ---
<Tank Brewer - Last Filed: 06/06/17 09:50> Home Health/Hosp Referral Info Transfer to: Home Health Provider in Charge Post Discharge: PCP - Diagnosis (1) Anemia Priority: Primary Status: Acute (2) Diabetes Priority: Secondary Status: Acute (3) HTN (hypertension) Priority: Secondary Status: Acute (4) NOBLE (acute kidney injury) Priority: Secondary Status: Acute (5) CHF (congestive heart failure) Priority: Secondary Status: Chronic (6) Pulmonary hypertension Priority: Secondary Status: Chronic - Respiratory Orders Oxygen / L per min (4L) Smoking Cessation: Smoking cessation has been advised. For more information, call the [place] Tobacco Quit Line at 7-972-XPJC-NOW. - Diet/Nutrition Diet/Nutrition Orders: No Concentrated Sweets Diet/Nutrition: List: Diabetic Diet - Activity Activity Orders: Walker - Services Needed Following services are medically necessary services: Nursing, Physical Therapy - Transfer Medications Home Medications: ALPRAZolam [Xanax 0.5 MG Tablet] 0.5 mg PO QID PRN 06/04/17 [History] Amitriptyline HCl 100 mg PO HS 06/04/17 [History] Calcium Carb, Citrate/Vit D3 [Calcium + D3 ER Tablet] 1 tab PO DAILY 06/04/17 [ History] Enalapril Maleate [Vasotec] 10 mg PO DAILY 06/04/17 [History] Furosemide [Lasix] 20 mg PO BID 06/04/17 [History] HYDROcodone/Acet 10/325 mg [[place] 10-325 mg] 2 tab PO TID PRN 06/04/17 [History] Lecithin 518 mg PO BID 06/04/17 [History] Metformin HCl [Glucophage] 1,000 mg PO BID 06/04/17 [History] [place]-3/Dha/Epa/Fish Oil [Fish Oil 1,000 mg Softgel] 1 cap PO BID 06/04/17 [ History] Ranitidine HCl [Acid Wardrobe Custodian] 150 mg PO BID 06/04/17 [History] Sildenafil Citrate [Revatio] 20 mg PO TID 06/04/17 [History] Tramadol HCl [Ultram] 50 mg PO Q8H PRN 06/04/17 [History] Ubiquinol 100 mg PO DAILY 06/04/17 [History] Vitamin B Complex Vit C No.4 [Super B Complex] 150 mg PO BID 06/04/17 [History] hydroCHLOROthiazide [Hydrochlorothiazide] 25 mg PO DAILY 06/04/17 [History] Levothyroxine Sodium [Synthroid] 137 mcg PO DAILY@0630 06/05/17 [History] Allergies/Adverse Reactions: 3 Allergy/AdvReac Type Severity Reaction Status Date / Time iodine Allergy Anaphylaxis Verified 06/28/15 17:14 aspirin AdvReac Mild See Verified 06/28/15 17:14 Comments codeine AdvReac Palpitation Verified 06/28/15 17:14 s Cortisone AdvReac Hives Verified 06/28/15 17:14 Hydromorphone [From Dilaudid] AdvReac Itching Verified 06/28/15 17:14 prednisone AdvReac Palpitation Verified 06/28/15 17:14 s Sulfa (Sulfonamide AdvReac Nausea Verified 06/28/15 17:14 Antibiotics) Certification: Further, I certify that my clinical findings support that this patient is homebound (i.e. absences from home require considerable and taxing effort and are for medical reasons or mu-ism services or infrequently or short duration when for other reasons) because: Homebound Reason: Patient requires assistance of a person or device to safely leave home, Leaving home requires considerable and taxing effort due to condition, Severity of cardiac or pulmonary status limits activity tolerance Attestation: My signature below is to certify that this patient is under my care and that I, or nurse practitioner, or a physician's support assistant working with me, has a face-to -face encounter with this patient. <Contreras Carrillo P - Last Filed: 06/06/17 14:00> - Respiratory Orders Smoking Cessation: Smoking cessation has been advised. For more information, call the [place] Tobacco Quit Line at 8-471-NCKA-NOW. Certification: Further, I certify that my clinical findings support that this patient is homebound (i.e. absences from home require considerable and taxing effort and are for medical reasons or mu-ism services or infrequently or short duration when for other reasons) because: Attestation: My signature below is to certify that this patient is under my care and that I, or nurse practitioner, or a physician's support assistant working with me, has a face-to -face encounter with this patient.
[2017-06-06] MEDS: Lisinopril 20 MG TABLET PO SCH (10:41)
[2017-06-06 10:42] VITALS: BP 119/67
[2017-06-06] MEDS: Insulin LISPRO 300 UNITS/3 ML VIAL SQ SCH ×2 (10:42)
== END 2017-06-06 12:02 | disposition home health service (06) | DRG 812 ==
LOC: EMEROO 06:16 → 2NENU 08:59 → 2ANU 09:17
PROVIDERS: ADMIT Internal Medicine; ATTEND Internal Medicine